=== PATIENT | male | born 1935 | race Caucasian/White ===

== ENCOUNTER 2017-03-29 08:56 | Inpatient (IN) | payer MEDICARE ==
[2017-03-29] MEDS ORDERED: DILTIAZEM HCL/D5W 125 ML IV PRN ×2 (09:00→13:26)
[2017-03-29] MEDS ORDERED: ASPIRIN 81 MG TABLET, CHEWABLE PO ONE (09:00)
[2017-03-29] MEDS ORDERED: DILTIAZEM HCL INJ 25 MG/5 ML VIAL IV ONE (09:00)
--- NOTE | 2017-03-29 09:18 | ER Document Report ---
ED General - General Stated Complaint: SHORT OF BREATH Time Seen by Provider: 03/29/17 09:00 Mode of Arrival: Medic Information source: Patient Notes: 82-year-old male presents with complaints of sudden shortness of breath difficulty breathing chest pressure. Patient denies a history of A. fib, was noted to be in A. fib heart rate 160 irregular. Patient admitted that he was not feeling well. Patient has not taken metoprolol today - HPI Onset: Just prior to arrival Onset/Duration: Sudden Quality of pain: Pressure Severity: Mild Pain Level: 1 Associated symptoms: Chest pain, Shortness of breath Exacerbated by: Denies Relieved by: Denies Similar symptoms previously: No Recently seen / treated by doctor: No Past Medical History - Social History Smoking Status: Never Smoker Cigarette use (# per day): No Chew tobacco use (# tins/day): No Smoking Education Provided: No Family History: Reviewed & Not Pertinent Review of Systems - Review of Systems Notes: REVIEW OF SYSTEMS: CONSTITUTIONAL : Denies fever, chills, or sweats. Denies recent illness. EENT: Denies eye, ear, throat, or mouth pain or symptoms. Denies nasal or sinus congestion or discharge. Denies throat, tongue, or mouth swelling or difficulty swallowing. CARDIOVASCULAR: Admits to chest pain RESPIRATORY: Admits to shortness of breath difficulty. GASTROINTESTINAL: Denies abdominal pain or distention. Denies nausea, vomiting , or diarrhea. Denies blood in vomitus, stools, or per rectum. Denies black, tarry stools. Denies constipation. GENITOURINARY: Denies difficulty urinating, painful urination, burning, frequency, blood in urine, or discharge. MUSCULOSKELETAL: Denies back or neck pain or stiffness. Denies joint pain or swelling. SKIN: Denies rash, lesions or sores. HEMATOLOGIC : Denies easy bruising or bleeding. LYMPHATIC: Denies swollen, enlarged glands. NEUROLOGICAL: Denies confusion or altered mental status. Denies passing out or loss of consciousness. Denies dizziness or lightheadedness. Denies headache. Denies weakness or paralysis or loss of use of either side. Denies problems with gait or speech. Denies sensory loss, numbness, or tingling. Denies seizures. PSYCHIATRIC: Denies anxiety or stress. Denies depression, suicidal ideation, or homicidal ideation. ALL OTHER SYSTEMS REVIEWED AND NEGATIVE. Dictation was performed using igobubble voice recognition software PHYSICAL EXAMINATION: GENERAL: Well-appearing, well-nourished and in no acute distress. HEAD: Atraumatic, normocephalic. EYES: Pupils equal round and reactive to light, extraocular movements intact, sclera anicteric, conjunctiva are normal. ENT: Nares patent, oropharynx clear without exudates. Moist mucous membranes. NECK: Normal range of motion, supple without lymphadenopathy LUNGS: Breath sounds clear to auscultation bilaterally and equal. No wheezes rales or rhonchi. HEART: Irregular rate and rhythm heart rate in the 160s ABDOMEN: Soft, nontender, nondistended abdomen. No guarding, no rebound. No masses appreciated. Musculoskeletal: Normal range of motion, no pitting or edema. No cyanosis. NEUROLOGICAL: Cranial nerves grossly intact. Normal speech, normal gait. Normal sensory, motor exams PSYCH: Normal mood, normal affect. SKIN: Warm, Dry, normal turgor, no rashes or lesions noted. Physical Exam - Vital signs Vitals: Resp 19 03/29/17 09:04 Course - Re-evaluation Re-evalutation: 03/29/17 09:19 Patient was given IV fluids by EMS because he was noted to be hypotensive with his A. fib RVR, on arrival here he was given a bolus of Cardizem his heart rate has gone from 160s-110, he is now at a blood pressure 100/65, EKG there is no A. fib, given new onset A. fib he will be placed on a Cardizem drip 03/29/17 10:02 Chest x-ray is consistent with by basilar pneumonia however given the history of cancer a CTA has been ordered to determine if this pneumonia is real or not 03/29/17 11:17 iv blew - Vital Signs Vital signs: Temp Pulse Resp BP Pulse Ox 22 H 114/71 77 L 03/29/17 11:01 03/29/17 11:01 03/29/17 11:01 - Laboratory Result Diagrams: 03/29/17 10:15 03/29/17 10:15 Laboratory results interpreted by me: 03/29/17 03/29/17 10:15 10:15 RBC 3.47 L Hgb 10.6 L Hct 32.5 L Seg Neutrophils % 83.8 H Lymphocytes % 6.1 L Direct Bilirubin 0.5 H AST 15 L Creatine Kinase < 20 L Albumin 3.3 L - Diagnostic Test Radiology reviewed: Image reviewed, Reports reviewed - EKG Interpretation by Me Rate: Tachycardia Rhythm: A.Fib Critical Care Note - Critical Care Note Total time excluding time spent on procedures (mins): 49 Comments: 49 minutes of critical care time spent in direct contact evaluating and reevaluating the patient, treating symptoms, reviewing labs and studies and speaking with family and consultants excluding any procedures Discharge - Discharge Clinical Impression: Atrial fibrillation with RVR Chest pain Qualifiers: Chest pain type: unspecified Qualified Code(s): R07.9 - Chest pain, unspecified Lung cancer Qualifiers: Laterality: unspecified laterality Lung location: unspecified part of lung Qualified Code(s): C34.90 - Malignant neoplasm of unspecified part of unspecified bronchus or lung Disposition: ADMITTED INPATIENT Admitting Provider: Hospitalist Unit Admitted: Telemetry
[2017-03-29] MEDS ORDERED: NORMAL SALINE 1000 ML 1,000 ML IV ONE (09:53)
--- NOTE | 2017-03-29 09:57 | RADIOLOGY REPORT (SQ) ---
EXAM DESCRIPTION: CHEST SINGLE VIEW COMPLETED DATE/TIME: 03/29/2017 9:42 am REASON FOR STUDY: chest pain COMPARISON: None. EXAM PARAMETERS: NUMBER OF VIEWS: One view. TECHNIQUE: Single frontal radiographic view of the chest acquired. RADIATION DOSE: NA LIMITATIONS: None. FINDINGS: LUNGS AND PLEURA: Abnormal increased density is seen within both lung bases left greater t gannon right. Changes on the left are most suggestive of pneumonia. Changes on the right could either represent chronic change or pneumonia. Remainder of the lungs are clear. No effusions are identifie d. MEDIASTINUM AND HILAR STRUCTURES: No masses. Contour normal. HEART AND VASCULAR STRUCTURES: Mild cardiomegaly. BONES: No acute findings. HARDWARE: None in the chest. OTHER: No other significant finding. IMPRESSION: 1. Basilar pneumonia possibly superimposed on chronic change. Follow-up films after tr eatment are recommended to ensure resolution. 2. Mild cardiomegaly. TECHNICAL DOCUMENTATION: JOB ID: [id number]
[2017-03-29 10:30] LABS: ABSOLUTE LYMPHOCYTES (AUTO) 0.5 10^3/uL (0.5-4.7); ABSOLUTE MONOCYTES (AUTO) 0.8 10^3/uL (0.1-1.4); ABSOLUTE NEUT (AUTO) 7.4 10^3/uL (1.7-8.2); BASOPHILS % (AUTO) 0.5 % (0-2); EOSINOPHILS % (AUTO) 0.4 % (0-6); HEMATOCRIT 32.5 % (37.9-51.0); HEMOGLOBIN 10.6 g/dL (13.5-17.0); HGB HCT DIFFERENCE -0.7; LYMPHOCYTES % (AUTO) 6.1 % (13-45); MEAN CORPUSCULAR HEMOGLOBIN 30.5 pg (27.0-33.4); MEAN CORPUSCULAR HGB CONC 32.7 g/dL (32.0-36.0); MEAN CORPUSCULAR VOLUME 94 fl (80-97); MONOCYTES % (AUTO) 9.2 % (3-13); RED BLOOD COUNT 3.47 10^6/uL (4.35-5.55); RED CELL DISTRIBUTION WIDTH 13.9 % (11.5-14.0); SEGMENTED NEUTROPHILS % (AUTO) 83.8 % (42-78); WHITE BLOOD COUNT 8.9 10^3/uL (4.0-10.5)
[2017-03-29 10:53] LABS: ALANINE AMINOTRANSFERASE 24 U/L (21-72); ALBUMIN 3.3 g/dL (3.5-5.0); ALKALINE PHOSPHATASE 87 U/L (38-126); ANION GAP 10 (5-19); ASPARTATE AMINO TRANSFERASE 15 U/L (17-59); BILIRUBIN,DIRECT 0.5 mg/dL (0.0-0.4); BILIRUBIN,TOTAL 0.7 mg/dL (0.2-1.3); BLOOD UREA NITROGEN 16 mg/dL (7-20); CALCIUM 9.8 mg/dL (8.4-10.2); CARBON DIOXIDE 29 mmol/L (22-30); CHLORIDE 102 mmol/L (98-107); CREATININE RESULT 0.76 mg/dL (0.52-1.25); GLUCOSE 105 mg/dL (75-110); POTASSIUM 4.6 mmol/L (3.6-5.0); SODIUM 140.9 mmol/L (137-145); TOTAL PROTEIN 6.9 g/dL (6.3-8.2)
[2017-03-29 10:54] LABS: CREATINE KINASE < 20 U/L (55-170)
[2017-03-29 11:06] LABS: CREATINE KINASE MB 0.99 ng/mL (<4.55)
[2017-03-29 11:11] LABS: TROPONIN I 0.074 ng/mL
--- NOTE | 2017-03-29 12:36 | EKG REPORT ---
SEVERITY:- ABNORMAL ECG - ATRIAL FIBRILLATION REPOL ABNRM SUGGESTS ISCHEMIA, DIFFUSE LEADS : Confirmed by: Andrew Pizarro MD 29-Mar-2017 12:36:08
[2017-03-29] MEDS ORDERED: ALBUTEROL SULFATE 0.083% NEB 2.5 MG/3 ML AMPUL NEB PRN (13:19)
[2017-03-29] MEDS ORDERED: ONDANSETRON HCL INJ/PF 4 MG/2 ML SDV IV PRN (13:19)
[2017-03-29] MEDS ORDERED: ACETAMINOPHEN 325 MG TABLET PO PRN (13:19)
[2017-03-29] MEDS ORDERED: NORMAL SALINE 1000 ML 1,000 ML IV PRN (13:19)
[2017-03-29] MEDS ORDERED: ENOXAPARIN SODIUM INJ 40 MG/0.4 ML DISP.SYRIN SUBCUT ONE (14:00)
--- NOTE | 2017-03-29 15:02 | RADIOLOGY REPORT (SQ) ---
EXAM DESCRIPTION: PICC INSERTION; U/S GUIDE FOR VASCULAR ACCESS; FLUORO/CV PLACEMENT COMPLETED DATE/TIME: 03/29/2017 2:48 pm REASON FOR STUDY: poor IV access. Needs IV meds, CT scan; IV ACCESS COMPARISON: None. FLUOROSCOPY TIME: 38 seconds 1 images saved to PACS. TECHNIQUE: Fluoroscopic and ultrasound guided PICC placement. LIMITATIONS: None. PROCEDURE: After written consent and assessment were obtained, the patient was brought into the fluo roscopy room and place supine on the table. Ultrasound was used on the patient's left arm for PICC a ccess. The left arm was prepped and draped in a sterile fashion along with the ultrasound probe. The entry site was anesthetized with 1% lidocaine. A 21 gauge 7 cm needle was advanced through the skin a nd into the basilic vein under live ultrasound guidance. An ultrasound image was saved to PACS confi rming access site. A .018 guide wire was then inserted through the needle and into the venous system . The needle was the removed and an 11 blade scalpel was used to make a 1cm skin incision. A 5 fr pe el-away sheath was advanced over the wire and into the venous system. A measurement was then made usi ng the existing wire and live fluoroscopic guidance. The wire was then removed and the trimmed. The P ICC was advanced through the peel-away sheath and into the venous system. The peel-away sheath was re moved and the catheter was adhered to the patients arm with a stat lock. The catheter was then aspira zuleyma and flushed and a sterile bandage was placed over the access site. A fluoroscopic spot image was saved to PACS confirming the catheter tip within the superior vena cava. IMPRESSION: SUCCESSFUL PLACEMENT OF A 5 FR DUAL LUMEN 39 CM PICC IN THE LEFT BASILIC VEIN. COMMENT: Patient medication list reviewed: Yes- Quality ID# 130:Eligible professional attests to doc umenting in the medical record they obtained, updated, or reviewed the patient's current medications. . Quality ID 145: Final reports for procedures using fluoroscopy that document radiation exposure jd ruby, or exposure time and number of fluorographic images (if radiation exposure indices are not avail able) Quality ID #76: The patient was prepped and draped using maximum sterile barrier technique including cap, mask, sterile gown, sterile gloves, a large sterile sheet, hand hygiene, and 2% Chlorhexidine fo r cutaneous antisepsis. When ultrasound is used, sterile ultrasound techniques are followed requiring sterile gel and sterile probes. TECHNICAL DOCUMENTATION: JOB ID: [id number] [employer]- All Rights Reserved
--- NOTE | 2017-03-29 15:41 | RADIOLOGY REPORT (SQ) ---
EXAM DESCRIPTION: CT HEAD COMBO COMPLETED DATE/TIME: 03/29/2017 3:16 pm REASON FOR STUDY: confusion, stage 4 lung CA COMPARISON: None. TECHNIQUE: Axial images acquired through the brain without and with intravenous contrast. Images re viewed with bone, brain, and subdural windows. Images stored on PACS. All CT scanners at this facility use dose modulation, iterative reconstruction, and/or weight based d osing when appropriate to reduce radiation dose to as low as reasonably achievable (ALARA). [facility]: Dose Right [facility]: CareDose [facility]: Dose Right [facility]: Teradose 4D [facility]: Smart [employer] CONTRAST TYPE AND DOSE: See separate report of the same date RENAL FUNCTION: See separate report of the same date RADIATION DOSE: Up-to-date CT equipment and radiation dose reduction techniques were employed. CTDIv ol: 49.0 mGy. DLP: 881 mGy-cm. . LIMITATIONS: None. FINDINGS: VENTRICLES: Prominent. CEREBRUM: Is age-appropriate volume loss. There is an enhancing lesion measuring just over 1 cm in t he right frontal nicholson-white matter junction near the sylvian fissure. No significant mass effect. N o hemorrhage. Some prominent vessels over the left convexity. No obvious dural metastasis. CEREBELLUM: No masses. No hemorrhage. No alteration of density. No evidence for acute infarction. No enhancing lesions. EXTRAAXIAL SPACES: Age-related involutional change. No fluid collections. No masses. No enhancing lesions. ORBITS AND GLOBE: No intra- or extraconal masses. Normal contour of globe without masses. CALVARIUM: No fracture. PARANASAL SINUSES: No fluid or mucosal thickening. SOFT TISSUES: No mass or hematoma. OTHER: No other significant finding. IMPRESSION: Metastatic lesion right frontal lobe. No hemorrhage or significant mass effect. TECHNICAL DOCUMENTATION: JOB ID: [id number] Quality ID # 436: Final reports with documentation of one or more dose reduction techniques (e.g., Au tomated exposure control, adjustment of the mA and/or kV according to patient size, use of iterative reconstruction technique) 2010 [employer]- All Rights Reserved
--- NOTE | 2017-03-29 15:50 | RADIOLOGY REPORT (SQ) ---
EXAM DESCRIPTION: CTA CHEST COMPLETED DATE/TIME: 03/29/2017 3:16 pm REASON FOR STUDY: new onset afib, cancer COMPARISON: None. TECHNIQUE: CT scan of the chest performed using helical scanning technique with dynamic intravenous contrast injection. Images reviewed with lung, soft tissue and bone windows. Reconstructed coronal and sagittal MPR images reviewed. Additional 3 dimensional post-processing performed to develop Maximal Intensity Projection images (FL P). All images stored on PACS. All CT scanners at this facility use dose modulation, iterative reconstruction, and/or weight based d osing when appropriate to reduce radiation dose to as low as reasonably achievable (ALARA). [facility]: Dose Right [facility]: CareDose [facility]: Dose Right [facility]: Teradose 4D [facility]: [employer] CONTRAST TYPE AND DOSE: contrast/concentration: Isovue 370.00 mg/ml; Total Contrast Delivered: 63.0 ml; Total Saline Delivered: 108.0 ml RENAL FUNCTION: BUN 16 creatinine 0.8 RADIATION DOSE: Up-to-date CT equipment and radiation dose reduction techniques were employed. CTDIv ol: 4.2 - 21.1 mGy. DLP: 1161 mGy-cm. . LIMITATIONS: None. FINDINGS: LUNGS AND PLEURA: Centrilobular and paraseptal emphysema. There is a necrotic mass the le ft lower lobe measuring about 6 cm in diameter. Mass is contiguous with approximately 2 cm diameter left hilar node encasing the left lower lobe bronchus and pulmonary artery. There is approximately 1 .5 cm nodule in the lingula. No effusions. AORTA AND GREAT VESSELS: No aneurysm or dissection. HEART: Cardiomegaly. No pericardial effusion. PULMONARY ARTERIES: No emboli visualized in the main pulmonary arteries or the segmental branches. HILAR AND MEDIASTINAL STRUCTURES: 2 x 2.5 cm subcarinal node. HARDWARE: None in the chest. UPPER ABDOMEN: See separate report of the CT of the abdomen. THYROID AND OTHER SOFT TISSUES: No masses. No adenopathy. BONES: No acute or significant finding. 3D MIPS: Confirm above findings. OTHER: Left-sided PICC line with tip in the SVC. IMPRESSION: Necrotic left lower lobe mass contiguous with left hilar adenopathy. Small nodule in th e lingula suspicious for satellite lesion. TECHNICAL DOCUMENTATION: JOB ID: [id number] Quality ID # 436: Final reports with documentation of one or more dose reduction techniques (e.g., Au tomated exposure control, adjustment of the mA and/or kV according to patient size, use of iterative reconstruction technique) 2010 [employer]- All Rights Reserved
--- NOTE | 2017-03-29 16:07 | RADIOLOGY REPORT (SQ) ---
EXAM DESCRIPTION: CT ABD/PELVIS WITH IV ONLY COMPLETED DATE/TIME: 03/29/2017 3:16 pm REASON FOR STUDY: stage 4 lung CA COMPARISON: None. TECHNIQUE: CT scan of the abdomen and pelvis performed using helical scanning technique with dynamic intravenous contrast injection. No oral contrast. Images reviewed with lung, soft tissue, and bone windows. Reconstructed coronal and sagittal MPR images reviewed. Delayed images for evaluation of the urinary system also acquired. All images stored on PACS. All CT scanners at this facility use dose modulation, iterative reconstruction, and/or weight based d osing when appropriate to reduce radiation dose to as low as reasonably achievable (ALARA). [facility]: Dose Right [facility]: CareDose [facility]: Dose Right [facility]: Teradose 4D [facility]: Smart [employer] CONTRAST TYPE AND DOSE: See separate report of the same date. RENAL FUNCTION: See separate report of the same date. RADIATION DOSE: . LIMITATIONS: Motion. Positioning. FINDINGS: LOWER CHEST: See separate report of the CT of the chest. LIVER: There are at least 3 low-density lesions in the posterior segment of the right lobe. There is a smaller lesion in the anterior segment. Largest lesion is about 2 cm. SPLEEN: Normal size. No focal lesions. PANCREAS: No masses. No significant calcifications. No adjacent inflammation or peripancreatic fluid collections. Pancreatic duct not dilated. GALLBLADDER: No identified stones by CT criteria. No inflammatory changes to suggest cholecystitis. ADRENAL GLANDS: No significant masses or asymmetry. RIGHT KIDNEY AND URETER: No solid masses. No significant calcifications. No hydronephrosis or hyd roureter. LEFT KIDNEY AND URETER: No solid masses. No significant calcifications. No hydronephrosis or hydr oureter. AORTA AND VESSELS: 3 cm infrarenal aortic aneurysm. RETROPERITONEUM: No retroperitoneal adenopathy, hemorrhage or masses. BOWEL AND PERITONEAL CAVITY: No masses or inflammatory changes. No free fluid or peritoneal masses. APPENDIX: Not visualized. PELVIS: No mass. No free fluid. Normal bladder. ABDOMINAL WALL: No masses. No hernias. BONES: No acute findings. OTHER: No other significant finding. IMPRESSION: 1. Liver metastasis. 2. No ascites. 3. 3 cm infrarenal aortic aneurysm. TECHNICAL DOCUMENTATION: JOB ID: [id number] Quality ID # [id number]: Final reports with documentation of one or more dose reduction techniques (e.g., Au tomated exposure control, adjustment of the mA and/or kV according to patient size, use of iterative reconstruction technique) 2010 [employer] All Rights Reserved
[2017-03-29] MEDS ORDERED: LORAZEPAM INJ 2 MG/1 ML VIAL IV PRN (16:35)
--- NOTE | 2017-03-29 16:36 | PDOC H&P ---
History of Present Illness Admission Date/PCP: 03/29/17 12:21 Patient complains of: Shortness of breath History of Present Illness: BREANA PARISH is a 82 year old male brought to the emergency department by family for shortness of breath. Family apparently picked him up from a hospital in [place] where he was diagnosed with lung cancer. He was residing alone in [place] and family was concerned about this. According to patient's daughter he had a lung cancer that had spread to the lymph nodes. She also states that he has heart issues and reports that he has an EF 40%. He has no prior history of irregular heart rhythm. Family also reports the patient's memory has been changing over the past couple weeks. He has had significant weight loss recently. Apparently after being diagnosed with lung cancer approximately 8 months ago he declined treatment. His daughter states that they were told his left lung mass was approximately 1 cm 8 months ago and is 6 cm now. He continues to smoke. In the emergency department is noted to be in atrial fibrillation with rapid ventricular response and is started on Cardizem drip. Past Medical History Cardiac Medical History: Reports: Congestive Heart Failure - Reported EF 40%, Hypertension Pulmonary Medical History: Reports: Chronic Obstructive Pulmonary Disease (COPD) Neurological Medical History: Reports: Seizures Past Surgical History Past Surgical History: Reports: Other - Multiple skin cancer surgeries Social History Information Source: Patient, Relative Lives with: Family Smoking Status: Current Every Day Smoker Frequency of Alcohol Use: None Hx Recreational Drug Use: No Hx Prescription Drug Abuse: No - Advance Directive Resuscitation Status: Do Not Resuscitate Family History Family History: Malignancy - Breast cancer-sister Parental Family History Reviewed: Yes Children Family History Reviewed: Yes Sibling(s) Family History Reviewed.: Yes Medication/Allergy Home Medications: Metoprolol Tartrate [Lopressor 50 mg Tablet] 25 mg PO Q12 03/29/17 Omeprazole 20 mg PO QAM 03/29/17 Phenobarbital 30 mg PO BID 03/29/17 Allergies/Adverse Reactions: No Known Allergies Allergy (Verified 03/29/17 11:46) Physical Exam Vital Signs: Temp Pulse Resp BP Pulse Ox 97.8 F 28 H 105/69 98 03/29/17 13:32 03/29/17 13:31 03/29/17 13:31 03/29/17 13:31 PHYSICAL EXAM: GENERAL: Appears well, no acute distress, cachectic HEENT: Normocephalic, no scleral icterus, conjunctiva clear, EOEM intact, PERRLA , moist mucous membranes NECK: trachea midline, no thyromegally RESPIRATORY: Clear to auscultation, no wheezes/rhonchi CARDIAC: Irregular/tachycardic ABDOMEN: Soft, no distension, no tenderness, no guarding, normal bowel sounds, negative Jensen sign RECTAL: deferred : deferred EXTREMITIES: No edema, cyanosis, clubbing MUSCULOSKELETAL: No joint swelling or deformity VASCULAR: normal peripheral pulses NEUROLOGIC: Alert, oriented to person/place/time, normal speech, cranial nerves grossly intact, 5/5 strength in all extremities, tactile sensation intact in all extremities SKIN: No rash, no wounds, no worrisome skin lesions PSYCHIATRIC: Normal mood, normal affect Results Laboratory Results: Labs- All tests 24 hr 03/29/17 03/29/17 03/29/17 10:15 10:15 10:15 WBC 8.9 RBC 3.47 L Hgb 10.6 L Hct 32.5 L MCV 94 MCH 30.5 MCHC 32.7 RDW 13.9 Plt Count 293 Seg Neutrophils % 83.8 H Lymphocytes % 6.1 L Monocytes % 9.2 Eosinophils % 0.4 Basophils % 0.5 Absolute Neutrophils 7.4 Absolute Lymphocytes 0.5 Absolute Monocytes 0.8 Absolute Eosinophils 0.0 Absolute Basophils 0.0 Sodium 140.9 Potassium 4.6 Chloride 102 Carbon Dioxide 29 Anion Gap 10 BUN 16 Creatinine 0.76 Est GFR ( Amer) > 60 Est GFR (Non-Af Amer) > 60 Glucose 105 Lactic Acid Calcium 9.8 Total Bilirubin 0.7 Direct Bilirubin 0.5 H Indirect Bilirubin Not Reportable Neonat Total Bilirubin Not Reportable AST 15 L ALT 24 Alkaline Phosphatase 87 Creatine Kinase < 20 L CK-MB (CK-2) 0.99 Troponin I 0.074 Total Protein 6.9 Albumin 3.3 L 03/29/17 10:15 WBC RBC Hgb Hct MCV MCH MCHC RDW Plt Count Seg Neutrophils % Lymphocytes % Monocytes % Eosinophils % Basophils % Absolute Neutrophils Absolute Lymphocytes Absolute Monocytes Absolute Eosinophils Absolute Basophils Sodium Potassium Chloride Carbon Dioxide Anion Gap BUN Creatinine Est GFR ( Amer) Est GFR (Non-Af Amer) Glucose Lactic Acid 2.4 H Calcium Total Bilirubin Direct Bilirubin Indirect Bilirubin Neonat Total Bilirubin AST ALT Alkaline Phosphatase Creatine Kinase CK-MB (CK-2) Troponin I Total Protein Albumin Impressions: Abdomen/Pelvis CT 03/29/17 00:00 IMPRESSION: 1. Liver metastasis. 2. No ascites. 3. 3 cm infrarenal aortic aneurysm. Guidance Fluoroscopy 03/29/17 00:00 IMPRESSION: SUCCESSFUL PLACEMENT OF A 5 FR DUAL LUMEN 39 CM PICC IN THE LEFT BASILIC VEIN. Head CT 03/29/17 00:00 IMPRESSION: Metastatic lesion right frontal lobe. No hemorrhage or significant mass effect. Interventional Vascular Procedure 03/29/17 00:00 IMPRESSION: SUCCESSFUL PLACEMENT OF A 5 FR DUAL LUMEN 39 CM PICC IN THE LEFT BASILIC VEIN. PICC Line Insertion 03/29/17 00:00 IMPRESSION: SUCCESSFUL PLACEMENT OF A 5 FR DUAL LUMEN 39 CM PICC IN THE LEFT BASILIC VEIN. Chest X-Ray 03/29/17 09:00 IMPRESSION: 1. Basilar pneumonia possibly superimposed on chronic change. Follow-up films after treatment are recommended to ensure resolution. 2. Mild cardiomegaly. Chest/Abdomen CTA 03/29/17 10:02 IMPRESSION: Necrotic left lower lobe mass contiguous with left hilar adenopathy. Small nodule in the lingula suspicious for satellite lesion. Assessment & Plan - Diagnosis (1) Lung cancer Qualifiers: Laterality: unspecified laterality Lung location: unspecified part of lung Qualified Code(s): C34.90 - Malignant neoplasm of unspecified part of unspecified bronchus or lung Is this a current diagnosis for this admission?: YesPlan: Patient has stage IV lung cancer with metastatic disease to the liver and brain. After discussion with patient and family we will arrange hospice services. (2) Atrial fibrillation with RVR Is this a current diagnosis for this admission?: YesPlan: Patient converted to sinus rhythm after brief Cardizem drip. Cardizem drip discontinued. Patient started back on metoprolol 25 mg twice daily. (3) COPD (chronic obstructive pulmonary disease) Is this a current diagnosis for this admission?: YesPlan: As needed albuterol nebulizer treatments. (4) Tobacco abuse Is this a current diagnosis for this admission?: Yes (5) Seizure disorder Is this a current diagnosis for this admission?: YesPlan: Continue phenobarbital. (6) Hypertension Is this a current diagnosis for this admission?: Yes (7) CHF (congestive heart failure) Qualifiers: Congestive heart failure type: systolic Congestive heart failure chronicity: chronic Qualified Code(s): I50.22 - Chronic systolic ( congestive) heart failure Is this a current diagnosis for this admission?: YesPlan: Patient has chronic systolic CHF with a reported EF of 40%. Continue metoprolol. - Time Time Spent: Greater than 70 Minutes Anticipated discharge: Hospice
[2017-03-29] MEDS ORDERED: NICOTINE 7 MG/24 HR PATCH.TD24 TD ONE (17:00)
[2017-03-29] MEDS: METOPROLOL TARTRATE 25 MG TABLET PO SCH (17:26)
[2017-03-29] MEDS ORDERED: PHENOBARBITAL 30 MG PO SCH (18:00)
[2017-03-29] MEDS: PHENOBARBITAL 32.4 MG TABLET PO SCH (21:04)
[2017-03-30 03:13] LABS: CREATINE KINASE MB 0.77 ng/mL (<4.55)
[2017-03-30 03:16] LABS: TROPONIN I 0.141 ng/mL
[2017-03-30 05:07] LABS: APPEARANCE,URINE SLIGHTLY-CLOUDY; BILIRUBIN,URINE NEGATIVE (NEGATIVE); GLUCOSE, URINE NEGATIVE (NEGATIVE); KETONES,URINE NEGATIVE (NEGATIVE); LEUKOCYTE ESTERASE,URINE SMALL (NEGATIVE); NITRITE,URINE NEGATIVE (NEGATIVE); PROTEIN,URINE NEGATIVE (NEGATIVE); URINE SPECIFIC GRAVITY 1.033
[2017-03-30] MEDS: METOPROLOL TARTRATE 25 MG TABLET PO SCH (05:31)
[2017-03-30 05:55] LABS: ABSOLUTE BASOPHILS # (AUTO) 0.1 10^3/uL (0.0-0.2); ABSOLUTE EOSINOPHILS # (AUTO) 0.2 10^3/uL (0.0-0.6); ABSOLUTE MONOCYTES (AUTO) 0.9 10^3/uL (0.1-1.4); ABSOLUTE NEUT (AUTO) 4.4 10^3/uL (1.7-8.2); BASOPHILS % (AUTO) 0.8 % (0-2); EOSINOPHILS % (AUTO) 2.5 % (0-6); HEMATOCRIT 27.6 % (37.9-51.0); HEMOGLOBIN 9.2 g/dL (13.5-17.0); LYMPHOCYTES % (AUTO) 15.3 % (13-45); MEAN CORPUSCULAR HEMOGLOBIN 30.8 pg (27.0-33.4); MEAN CORPUSCULAR HGB CONC 33.3 g/dL (32.0-36.0); MEAN CORPUSCULAR VOLUME 92 fl (80-97); MONOCYTES % (AUTO) 14.6 % (3-13); RED BLOOD COUNT 2.99 10^6/uL (4.35-5.55); RED CELL DISTRIBUTION WIDTH 14.4 % (11.5-14.0); SEGMENTED NEUTROPHILS % (AUTO) 66.8 % (42-78); WHITE BLOOD COUNT 6.5 10^3/uL (4.0-10.5)
[2017-03-30 06:06] LABS: ANION GAP 6 (5-19); BLOOD UREA NITROGEN 16 mg/dL (7-20); CALCIUM 9.4 mg/dL (8.4-10.2); CARBON DIOXIDE 31 mmol/L (22-30); CHLORIDE 100 mmol/L (98-107); CREATININE RESULT 0.71 mg/dL (0.52-1.25); GLUCOSE 100 mg/dL (75-110); POTASSIUM 3.9 mmol/L (3.6-5.0); SODIUM 137.2 mmol/L (137-145)
[2017-03-30] MEDS ORDERED: LANSOPRAZOLE 15 MG TAB.RAP.DR PO SCH (08:00)
[2017-03-30] MEDS: PHENOBARBITAL 32.4 MG TABLET PO SCH (09:33)
[2017-03-30] MEDS ORDERED: ENOXAPARIN SODIUM INJ 40 MG/0.4 ML DISP.SYRIN SUBCUT SCH (10:00)
[2017-03-30] MEDS ORDERED: NICOTINE 7 MG/24 HR PATCH.TD24 TD SCH (10:00)
[2017-03-30 11:59] VITALS: BP 116/64
--- NOTE | 2017-03-30 13:19 | PDOC DISCHARGE SUMMARY ---
General - Admit/Disc Date/PCP Admission Date/Primary Care Provider: 03/29/17 13:19 Discharge Date: 03/30/17 - Discharge Diagnosis (1) Atrial fibrillation with RVR Is this a current diagnosis for this admission?: YesSummary: Resolved. Likely underlying medical condition from metastatic lung cancer currently in normal sinus rhythm. Continue metoprolol as an outpatient (2) Lung cancer Is this a current diagnosis for this admission?: YesSummary: Patient has metastatic lung cancer. He has relocated here from [place]. He states that he did not have a primary oncologist back in [place]. However, his daughter says that he is slightly confused and that he did. She is asked as to his current prognosis. I have encouraged her to contact his previous oncologist for that assessment. At this point there are no plans for him to acquire an oncologist down here. The patient decided 8-10 months ago that he does not desire any treatment whatsoever. Use quality over quantity of life. Arrangements for home hospice have been made. (3) CHF (congestive heart failure) Is this a current diagnosis for this admission?: YesSummary: Stable. Continue metoprolol. (4) COPD (chronic obstructive pulmonary disease) Is this a current diagnosis for this admission?: YesSummary: Without exacerbation. continue as needed albuterol (5) Hypertension Is this a current diagnosis for this admission?: YesSummary: Continue metoprolol (6) Seizure disorder Is this a current diagnosis for this admission?: YesSummary: Continue phenobarbital (7) Tobacco abuse Is this a current diagnosis for this admission?: YesSummary: Continues to smoke. Static lung cancer. At this point I do not think that he has any intentions upon quitting. - Additional Information Resuscitation Status: Do Not Resuscitate Home Medications: Metoprolol Tartrate [Lopressor 50 mg Tablet] 25 mg PO Q12 03/29/17 Omeprazole 20 mg PO QAM 03/29/17 Phenobarbital 30 mg PO BID 03/29/17 History of Present Illness History of Present Illness: HPI as per admitting physician: Patient complains of: Shortness of breath History of Present Illness: BREANA PARISH is a 82 year old male brought to the emergency department by family for shortness of breath. Family apparently picked him up from a hospital in [place] where he was diagnosed with lung cancer. He was residing alone in [place] and family was concerned about this. According to patient's daughter he had a lung cancer that had spread to the lymph nodes. She also states that he has heart issues and reports that he has an EF 40%. He has no prior history of irregular heart rhythm. Family also reports the patient's memory has been changing over the past couple weeks. He has had significant weight loss recently. Apparently after being diagnosed with lung cancer approximately 8 months ago he declined treatment. His daughter states that they were told his left lung mass was approximately 1 cm 8 months ago and is 6 cm now. He continues to smoke. In the emergency department is noted to be in atrial fibrillation with rapid ventricular response and is started on Cardizem drip. Hospital Course Hospital Course: Was admitted to the hospital. He was accompanied by his daughter currently living. They have reached a decision that he will have hospice services at the [facility]. Patient is in agreement with this. The patient started was encouraged to contact his former oncologist about prognosis. She did ask me directly how much longer I felt live. This point the patient is not actively dying. There is some question as to whether or not he has metastases to the brain. Again, I have directed her to previous oncologist. Physical Exam Vital Signs: Temp Pulse Resp BP Pulse Ox 97.4 F 81 21 H 116/64 96 03/30/17 11:14 03/30/17 11:14 03/30/17 11:14 03/30/17 11:14 03/30/17 11:14 Intake & Output 03/29/17 03/30/17 03/31/17 06:59 06:59 06:59 Intake Total 1645 480 Output Total 430 125 Balance 1215 355 Weight 59.6 kg GENERAL: This is a well-developed cachectic appearing elderly white male resting in bed currently in no acute distress HEART: [Regular rate and rhythm. No murmurs, rubs or gallops.] LUNGS: [Breath sounds bilaterally with equal rise and fall of the chest.] ABDOMEN: [Soft, nontender, nondistended with normoactive bowel sounds] EXTREMETIES: [No clubbing, cyanosis or edema. 2+ tibialis peripheral pulses bilaterally.] NEURO: [Awake, alert and oriented 2. Cranial nerves II through XII are grossly intact.] Results Laboratory Results: 03/30/17 05:24 03/30/17 05:24 03/30/17 03/30/17 03/30/17 04:03 05:24 05:24 WBC 6.5 RBC 2.99 L Hgb 9.2 L Hct 27.6 L MCV 92 MCH 30.8 MCHC 33.3 RDW 14.4 H Plt Count 247 Seg Neutrophils % 66.8 Lymphocytes % 15.3 Monocytes % 14.6 H Eosinophils % 2.5 Basophils % 0.8 Absolute Neutrophils 4.4 Absolute Lymphocytes 1.0 Absolute Monocytes 0.9 Absolute Eosinophils 0.2 Absolute Basophils 0.1 Sodium 137.2 Potassium 3.9 Chloride 100 Carbon Dioxide 31 H Anion Gap 6 BUN 16 Creatinine 0.71 Est GFR ( Amer) > 60 Est GFR (Non-Af Amer) > 60 Glucose 100 Calcium 9.4 Urine Color YELLOW Urine Appearance SLIGHTLY-CLOUDY Urine pH 5.0 Ur Specific [place] 1.033 Urine Protein NEGATIVE Urine Glucose (UA) NEGATIVE Urine Ketones NEGATIVE Urine Blood SMALL H Urine Nitrite NEGATIVE Ur Leukocyte Esterase SMALL H Urine WBC (Auto) 45 Urine RBC (Auto) 14 03/30/17 03/30/17 02:30 02:30 Creatine Kinase < 20 L CK-MB (CK-2) 0.77 Troponin I 0.141 Impressions: Abdomen/Pelvis CT 03/29/17 00:00 IMPRESSION: 1. Liver metastasis. 2. No ascites. 3. 3 cm infrarenal aortic aneurysm. Guidance Fluoroscopy 03/29/17 00:00 IMPRESSION: SUCCESSFUL PLACEMENT OF A 5 FR DUAL LUMEN 39 CM PICC IN THE LEFT BASILIC VEIN. Head CT 03/29/17 00:00 IMPRESSION: Metastatic lesion right frontal lobe. No hemorrhage or significant mass effect. Interventional Vascular Procedure 03/29/17 00:00 IMPRESSION: SUCCESSFUL PLACEMENT OF A 5 FR DUAL LUMEN 39 CM PICC IN THE LEFT BASILIC VEIN. PICC Line Insertion 03/29/17 00:00 IMPRESSION: SUCCESSFUL PLACEMENT OF A 5 FR DUAL LUMEN 39 CM PICC IN THE LEFT BASILIC VEIN. Chest X-Ray 03/29/17 09:00 IMPRESSION: 1. Basilar pneumonia possibly superimposed on chronic change. Follow-up films after treatment are recommended to ensure resolution. 2. Mild cardiomegaly. Chest/Abdomen CTA 03/29/17 10:02 IMPRESSION: Necrotic left lower lobe mass contiguous with left hilar adenopathy. Small nodule in the lingula suspicious for satellite lesion. Qualifiers PATEINT BEING DISCHARGED WITH ANY OF THE FOLLOWING DIAGNOSIS?: No Plan Time Spent: Greater than 30 Minutes
== END 2017-03-30 14:23 | disposition hospice, home (50) | DRG 181 ==
LOC: ER 08:56 → EH 12:21 → UNDOADMIN 12:21 → EH 13:19 → 3N 15:23 → EH 15:23
PROC: 02HV33Z Insertion of Infusion Device into Superior Vena Cava, Percutaneous Approach (ICD-10-PCS; principal; 2017-03-29)
PROC: B5181ZA Fluoroscopy of Superior Vena Cava using Low Osmolar Contrast, Guidance (ICD-10-PCS; 2017-03-29)
PROC: B548ZZA Ultrasonography of Superior Vena Cava, Guidance (ICD-10-PCS; 2017-03-29)
DX: C34.92 Malignant neoplasm of unspecified part of left bronchus or lung (principal); I50.22 Chronic systolic (congestive) heart failure; C79.31 Secondary malignant neoplasm of brain; C78.7 Secondary malignant neoplasm of liver and intrahepatic bile duct; I48.91 Unspecified atrial fibrillation; J44.9 Chronic obstructive pulmonary disease, unspecified; G40.909 Epilepsy, unspecified, not intractable, without status epilepticus; F17.200 Nicotine dependence, unspecified, uncomplicated; I11.0 Hypertensive heart disease with heart failure; Z66 Do not resuscitate; Z85.828 Personal history of other malignant neoplasm of skin; Z79.899 Other long term (current) drug therapy
CPT/HCPCS: 36415; 36569; 70470; 71010; 71275; 74177; 76937; 77001; 80048; 80053; 81001; 82550; 82553; 83605; 84484; 85025; 87086; 93005; 93010; 96365; 96366; 96376; 99291; J1642; J1650; J3490; J7030